=== PATIENT | male | born 1985 | race Caucasian/White ===

== ENCOUNTER → 2019-08-10 | Outpatient (REF) | payer BC, OTHER | LOC: M SMT 12:57 | PROVIDERS: ATTEND Urology | DX: Z30.09 Encounter for other general counseling and advice on contraception (principal) ==

== ENCOUNTER → 2019-10-05 | Outpatient (REF) | payer BC ==
[2019-10-05 08:51] LABS: SEMEN APPEARANCE OPAQUE (OPAQUE)
[2019-10-05 08:52] LABS: SEMEN VISCOSITY VISCOUS (LIQUID); SEMEN VOLUME 1.8 ml (2.0-5.0); WBC CONCENTRATION <=1 M/ml (<=1 M/ml)
== END ==
LOC: M SMT 08:14
PROVIDERS: ATTEND Urology
DX: Z98.52 Vasectomy status (principal)